=== PATIENT | female | born 2000 | race African-American/Black ===

== ENCOUNTER 2024-11-21 07:34 | Emergency (ER) | payer MEDICAID ==
[~2024-11-21] VITALS: Ht 165.1 cm; Wt 66.0 kg
[2024-11-21 07:37] VITALS: O2SAT 99
[2024-11-21 08:09] LABS: CLARITY URINE CLEAR (CLEAR); COLOR URINE YELLOW (YELLOW); GLUCOSE URINE NEGATIVE (NEGATIVE); KETONES URINE TRACE (NEGATIVE); LEUKOCYTE ESTERASE URINE 2+ (NEGATIVE); NITRITE URINE NEGATIVE (NEGATIVE); OCCULT BLOOD URINE NEGATIVE (NEGATIVE); PH URINE 6.5 (4.5-8.0); PROTEIN URINE NEGATIVE (NEGATIVE); SPECIFIC GRAVITY URINE 1.022 (1.005-1.030); UROBILINOGEN URINE 1.0 E.U./dL (0.2-1.0)
[2024-11-21 08:12] LABS: BASOPHILS % 0.6 % (0.0-2.0); EOSINOPHILS % 3.3 % (0.0-5.0); HEMATOCRIT. 37.5 % (36.0-48.0); HEMOGLOBIN. 12.1 g/dL (12.0-16.0); LYMPHOCYTES % 36.4 % (20.0-50.0); MEAN PLATELET VOLUME 7.5 fl (7.4-10.4); MONOCYTES % 10.9 % (2.0-8.0); NEUTROPHILS % 48.8 % (40.0-76.0); PLATELET 288 x1000/uL (130-400); RED BLOOD CELL COUNT 4.51 mill/uL (4.2-5.4); RED CELL DISTRIBUTION WIDTH 14.5 % (11.6-14.6)
[2024-11-21 08:25] LABS: BACTERIA URINE 1+; CREATININE 0.8 mg/dL (0.6-1.0); SQUAMOUS EPITHELIAL CELL URINE 2+ /lpf (RARE/1+); UREA NITROGEN BLOOD 9 mg/dL (9-23); WBC URINE 50-100 /hpf (0-2); YEAST URINE NONE SEEN
[2024-11-21 08:26] LABS: ASPARTATE AMINOTRANSFERASE 15 IU/L (<34)
[2024-11-21 08:27] LABS: BILIRUBIN DIRECT 0.2 mg/dL (<=3.0); BILIRUBIN TOTAL 1.0 mg/dL (0.1-1.0); PROTEIN TOTAL 6.6 g/dL (6.0-8.3)
[2024-11-21] MEDS ORDERED: NITROFURANTOIN 100MG M/M CAPSULE PO SCH (08:30)
[2024-11-21 08:40] LABS: HCG SCREEN NEGATIVE
[2024-11-21] MEDS: IBUPROFEN 800MG TABLET PO ONE (08:42)
[2024-11-21] MEDS: CEPHALEXIN 250MG CAPSULE PO SCH (08:43)
[2024-11-21] MEDS: ONDANSETRON 4MG ODT PO ONE (08:43)
[2024-11-21] MEDS ORDERED: IBUP-2030 MT (08:45)
[2024-11-21] MEDS ORDERED: ONDA-239 PO (08:45)
[2024-11-21] MEDS ORDERED: CEPH500C2 MT (08:45)
[2024-11-21 08:55] VITALS: BP 130/78; PULSE 99; RESP 16; TEMP 36.8; O2SAT 99
== END 2024-11-21 08:55 | disposition home or self-care (01) ==
LOC: ER 07:34
DX: N39.0 Urinary tract infection, site not specified (principal); Z79.899 Other long term (current) drug therapy
CPT/HCPCS: 99284; 80076; 80048; 81003; 84703; 83690; 85025; 87086; 36415; Q0162